=== PATIENT | male | born 1960 | race Caucasian/White ===

== ENCOUNTER → 2016-11-23 | Outpatient (CLI) | payer BC ==
--- NOTE | 2016-11-23 13:55 | EST ---
DATE OF SERVICE: 11/23/2016 AGE: 55Y SEX: M HT: 71" WT: 186 lbs. Protocol Hugo: X Other: Stress Stage: V Dur. of Exercise: 14:30 *Heart Rate Blood Pressure *Rest: 47 Rest: 172/91 * *Max. Achieved: 141 Maximum BP: 172/64 85% PMHR: 141 100% PMHR: 166 *METS: 13.7 INDICATIONS: Shortness of breath. MEDICATIONS: - STRESS DATA: Pretesting physical examination showed a heart of 47, pressure is 173/91 mmHg. Baseline EKG showed sinus rhythm. The patient exercised on the treadmill according to Hugo protocol for a total of 14 minutes and achieved 13.7 METs with max heart rate was 141, which is 85% of maximum predicted heart rate. Maximum blood pressure was 172/64 mmHg. Clinically, the patient did not have any symptoms of chest pain or discomfort and the EKG did not show any significant ST or T-wave abnormalities consistent with ischemia. CONCLUSION: 1. Excellent exercise capacity. 2. Normal EKG in response to exercise. 3. Essentially normal stress test for the patient.
== END | disposition home or self-care (01) ==
LOC: RADNMMAIN 11:01
PROVIDERS: ATTEND Family Medicine
DX: R06.02 Shortness of breath (principal)
CPT/HCPCS: 93017

== ENCOUNTER → 2022-01-11 | Outpatient (CLI) | payer BC ==
--- NOTE | 2022-01-11 12:10 | NM ---
EXAMINATION TYPE: NM stress cardiolite complete DATE OF EXAM: 01/11/2022 COMPARISON: NONE HISTORY: I 10, hypertension, Z 82.49 TECHNIQUE: After the intravenous administration of 10.1 mCi Tc 99m Sestamibi - Rest images obtained 75 minutes post injection. The patient exercised using a APRIL protocol and 1 minute prior to peak exercise was injected with 26 mCi Tc 99m Sestamibi - Stress images obtained 10 minutes post injection . FINDINGS: Targeted heart rate was achieved during performance of the study, patient achieved 96% predicted maxi mal heart rate. Review of stress and rest SPECT images demonstrates decreased uptake along the bowen septal left ventricle on stress as compared to rest images. Gated analysis shows normal wall motion with an estimated left ventricular ejection fraction of 53 %. IMPRESSION: Stress-induced left ventricular myocardial ischemia
--- NOTE | 2022-01-11 15:06 | EST ---
EXERCISE STRESS AGE: 61 SEX: M HT: 6' WT: 193 lbs PROTOCOL: Cardiolite Hugo STAGE: 5 DURATION OF EXERCISE: 14:30 HEART RATE REST: 50 BLOOD PRESSURE REST: 135/58 MAXIMUM HEART RATE ACHIEVED: 154 MAXIMUM BLOOD PRESSURE: 219/79 85% MPHR: 136 100% MPHR: 160 METS: 14.9 INDICATIONS: Hypotension CLINICAL INFORMATION: Baseline rhythm is sinus mechanism, rate of 50, normal axis and intervals, normal electrocardiogram. Baseline blood pressure 135/58 mmHg. Patient exercised on Hugo protocol for 14 minutes 30 seconds, reaching a peak rate of 154 beats per minute, which is equal to 96% of maximum predicted heart rate. Peak blood pressure 201/63 mmHg. Test was terminated because of fatigue. There was no chest pain. Electrocardiographic monitoring revealed no evidence of diagnostic ischemic ST deviation. Rare PVCs were noted. Electrocardiographic monitoring revealed a 0.[address]-segment depression that resolved in recovery. FINDINGS: Baseline echocardiogram revealed normal thickness and wall motion. At peak exercise there was normal wall motion augmentation with no hypokinesis or dyskinesis. CONCLUSION: 1. Excellent exercise tolerance with borderline positive electrocardiograph stress testing. 2. Normal stress echocardiogram with no evidence of stress-induced ischemia. MMODL / IJN: [id number] /
== END | disposition home or self-care (01) ==
LOC: RADNMMAIN 08:14
PROVIDERS: ATTEND Family Medicine
DX: I25.9 Chronic ischemic heart disease, unspecified (principal); I10 Essential (primary) hypertension; Z82.49 Family history of ischemic heart disease and other diseases of the circulatory system
CPT/HCPCS: 93017; 78452; A9500